=== PATIENT | female | born 1970 | race Caucasian/White ===

== ENCOUNTER 2021-05-16 08:36 | Emergency (ER) | payer BC, SELFPAY ==
[2021-05-16 08:43] VITALS: BP 121/75; PULSE 86; RESP 16; TEMP 37.1; O2SAT 98
--- NOTE | 2021-05-16 09:03 | ED.URI ---
HPI - URI/Sore Throat General Chief Complaint: Upper Respiratory Infection Stated Complaint: sore throat Time Seen by Provider: 05/16/21 09:03 Source: patient and family History of Present Illness HPI Narrative: PATIENT PRESENTS WITH SORE THROAT FOR THE PAST 2 DAYS. DENIES ANY OTHER SYMPTOMS FULLY IMMUNIZED DENIES ANY OTHER SYMPTOMS MD elicited complaint: sore throat Related Data Home Medications Medication Instructions Recorded Confirmed desvenlafaxine succinate mg PO 05/16/21 diclofenac sodium PO 05/16/21 gabapentin 05/16/21 galcanezumab-gnlm [Emgality Pen] mg SUBCUT 05/16/21 trazodone 05/16/21 Allergies Allergy/AdvReac Type Severity Reaction Status Date / Time Sulfa (Sulfonamide Allergy Severe hives Verified 05/16/21 09:04 Antibiotics) Review of Systems Review of Systems: CONSTITUTIONAL: Denies fever, chills, or sweats. EYES: Denies visual changes, redness, or discharge. ENT: Denies rhinorrhea, congestion, sore throat, or otalgia. CARDIOVASCULAR: Denies chest pain, palpitations, or edema. RESPIRATORY: Denies cough or dyspnea. GASTROINTESTINAL: Denies abdominal pain, nausea, vomiting, or diarrhea. GENITOURINARY: Denies dysuria or hematuria. SKIN: Denies rash or itching. MUSCULOSKELETAL: Denies back pain, joint pain, or myalgia. NEUROLOGIC: Denies headache, numbness, or weakness. PSYCHIATRIC: Denies anxiety or depression. PMFSH Comments At time of signature, agree with nursing past medical, surgical, social and family history. There is no relevant family history pertinent to the presenting complaint Exam Narrative: GENERAL: Well-appearing, well-nourished, and in no acute distress. HEAD: Normocephalic, atraumatic. EYES: PERRLA and EOMI. ENT: Nares clear, no rhinorrhea or epistaxis. Mucous membranes moist. NECK: Supple. CHEST: Clear to auscultation. No respiratory distress. HEART: Regular rate and rhythm. No murmur heard. Normal peripheral pulses. ABDOMEN: Soft, nontender, nondistended, normal active bowel sounds. EXTREMITIES: Normal range of motion. No edema. SKIN: Warm, dry, no rash. NEURO: No focal deficits. Alert and oriented x3. Irene Coma Scale Eye Opening: Spontaneous 4 [place] Coma Scale Motor: Obeys Commands 6 Irene Coma Scale Verbal: Oriented 5 Irene Coma Scale Total 15 Course Vital Signs Vital signs: Vital Signs Temperature 37.1 C 05/16/21 08:43 Pulse Rate 86 05/16/21 08:43 Respiratory Rate 16 05/16/21 08:43 Blood Pressure 121/75 05/16/21 08:43 Pulse Oximetry 98 05/16/21 08:43 Temperature 37.1 C 05/16/21 08:43 Pulse Rate 86 05/16/21 08:43 Respiratory Rate 16 05/16/21 08:43 Blood Pressure 121/75 05/16/21 08:43 Pulse Oximetry 98 05/16/21 08:43 Regarding diagnosis, Regarding diagnostic results, Regarding treatment plan, Regarding prescription, Patient indicated understanding of instructions. Critical dx considered and discussed with pt. Educated patient on red flag s/s and to go to ED if s/s occur. Discussed with pt when to return to [facility] or primary care provider. Pt gave verbal understanding, all questions were answered, and pt was agreeable to plan.. MDM - URI/Sore Throat Differential Diagnosis Differential diagnosis: Likely pharyngitis Lab Data Labs: Strep Screen Presumptive Negative *(Reference Range: Negative)* Critical Care Time Critical Care Time Critical Care Time: No Discharge Plan Discharge Clinical Impression: Pharyngitis, Upper respiratory infection Patient Disposition: Home, Self-Care Condition: Stable Instructions: Antibiotic Form, Pharyngitis (ED) Additional Instructions: Warm salt water gargles as needed for sore throat and/or Chloraseptic throat spray Tylenol and or ibuprofen as needed for pain and discomfort Take prednisone every morning with food as directed until gone Isolate at home until COVID-19 results are known You
== END 2021-05-16 09:39 | disposition home or self-care (01) ==
PROVIDERS: Emergency Provider Nurse Practitioner Family
DX: J02.9 Acute pharyngitis, unspecified (principal); J06.9 Acute upper respiratory infection, unspecified
CPT/HCPCS: 87081; 87880; 99213; G0463

== ENCOUNTER → 2021-05-19 00:23 | Outpatient (CLI) | payer BC, SELFPAY ==
[2021-05-19 23:32] LABS: SARS-CoV-2 RNA PCR Negative
== END ==
PROVIDERS: Visit Provider Nurse Practitioner Family
DX: J02.9 Acute pharyngitis, unspecified (principal); Z20.822 Contact with and (suspected) exposure to COVID-19
CPT/HCPCS: C9803; U0003; U0005

== ENCOUNTER 2023-09-09 14:24 | Outpatient (CLI) | payer BC, SELFPAY | END 2023-09-09 14:25 | disposition home or self-care (01) | LOC: ANHAUDIO 14:25 | PROVIDERS: Visit Provider Otolaryngology | DX: H93.11 Tinnitus, right ear (principal); R13.10 Dysphagia, unspecified; K22.4 Dyskinesia of esophagus; H90.41 Sensorineural hearing loss, unilateral, right ear, with unrestricted hearing on the contralateral side | CPT/HCPCS: 92552; 92556; 92567 ==